=== PATIENT | female | born 1960 | race Two or more races ===

== ENCOUNTER → 2018-10-26 | Outpatient (CLI) | payer OTHER, MEDICAID ==
[~2018-10-26] MED LIST: ATEN25TA PO; GABA600T4 PO; HALC0.25 PO; LISI10TA2 PO; LITH45TASA PO; OMEP20CA3 PO; [UNRECOGNIZED DRUG - CODE] PO
[2018-10-26 09:09] LABS: ALBUMIN 3.7 GM/DL (3.2-5.2); ALT/SGPT 25 U/L (12-78); BILIRUBIN,TOTAL 0.4 MG/DL (0.2-1.0); BLOOD UREA NITROGEN 21 MG/DL (7-18); CALCIUM LEVEL 8.7 MG/DL (8.5-10.1); CARBON DIOXIDE LEVEL 31 MEQ/L (21-32); CHLORIDE LEVEL 106 MEQ/L (98-107); CHOLESTEROL LEVEL 176 MG/DL (<200); CHOLESTEROL RISK RATIO 2.022 (<5); CREATININE FOR GFR 0.78 MG/DL (0.55-1.30); FREE T4 1.02 NG/DL (0.76-1.46); GLOMERULAR FILTRATION RATE > 60.0 (>51); GLUCOSE, FASTING 92 MG/DL (70-100); HDL CHOLESTEROL 87 MG/DL (>40); LDL CHOLESTEROL 81 MG/DL (<100); NON-HDL-C 89 MG/DL; POTASSIUM SERUM 4.6 MEQ/L (3.5-5.1); SODIUM LEVEL 142 MEQ/L (136-145); TOTAL PROTEIN 6.2 GM/DL (6.4-8.2); TRIGLYCERIDES LEVEL 40 MG/DL (<150)
[2018-10-26 09:27] LABS: TOTAL 25(OH) VITAMIN D 40.3 NG/ML (30.0-100.0)
== END ==
LOC: M LAB 07:43
PROVIDERS: ATTEND Nurse Practitioner Family
DX: F32.9 Major depressive disorder, single episode, unspecified (principal)

== ENCOUNTER → 2018-12-16 | Outpatient (CLI) | payer MEDICAID, OTHER ==
--- NOTE | 2018-12-16 10:49 | REP ---
LOW-DOSE LUNG CANCER SCREENING CT STUDY OF THE CHEST WITHOUT CONTRAST: HISTORY: Former smoker. Lung cancer screening. Comparison chest x-rays from February 09, 2014. FINDINGS: There is no evidence of pulmonary mass lesion or significant nodule. There are minimal biapical pleuroparenchymal fibrotic changes. The scan is otherwise unremarkable. IMPRESSION: Lung RADS category 1 negative examination. Repeat screening suggested 1 year. Electronically Signed by Gabriel Tang MD 12/16/2018 07:58 P
== END ==
LOC: M RAD 08:42
PROVIDERS: ATTEND Nurse Practitioner Family
DX: Z12.2 Encounter for screening for malignant neoplasm of respiratory organs (principal); Z87.891 Personal history of nicotine dependence

== ENCOUNTER → 2020-07-26 | Outpatient (CLI) | payer OTHER ==
[~2020-07-26] MED LIST changes: +LISI10TA15 PO; -LISI10TA2 PO; +OMEP1CAP73 PO; -OMEP20CA3 PO
--- NOTE | 2020-07-26 10:29 | REPMRS ---
Patient History The patient states she had a clinical breast exam in 07/26 Family history of breast cancer at age 50 or over in maternal aunt. 3D TOMOSYNTHESIS WAS PERFORMED. The Kiara Caputo lifetime risk for breast cancer is 11.0%. Volpara breast density b. Digital Woman Screen Mammo: July 26, 2020 - Exam #: [id number] Bilateral CC and MLO view(s) were taken. Technologist: Ines Larkin, Technologist Prior study comparison: July 20, 2012, left breast digital mammo diagnostic unilateral, performed at [facility]. July 04, 2012, bilateral digital mammo screening bilat, performed at [facility]. FINDINGS: There are scattered fibroglandular densities. There has been no change in the appearance of the mammogram from the prior studies. There is a mild amount of residual fibroglandular tissue which is fairly symmetric. There is no interval development of dominant mass, architectural distortion, or clustered microcalcification suggestive of malignancy. Assessment: BI-RADS/ACR category 1 mammogram. Negative Mammogram. Recommendation Routine screening mammogram in 1 year (for women over age 40). This mammogram was interpreted with the aid of an FDA-approved computer-aided dectection system. Electronically Signed By: Eliud Quesada MD 07/26/20 [id number]
== END ==
LOC: M WHC 07:51
PROVIDERS: ATTEND Obstetrics & Gynecology
DX: Z12.31 Encounter for screening mammogram for malignant neoplasm of breast (principal); Z80.3 Family history of malignant neoplasm of breast

== ENCOUNTER → 2020-09-23 | Outpatient (CLI) | payer BC, OTHER | LOC: M LABSMTC 11:30 | PROVIDERS: ATTEND Family Medicine | DX: Z20.822 Contact with and (suspected) exposure to COVID-19 (principal) ==

== ENCOUNTER → 2021-08-04 | Outpatient (CLI) | payer BC, OTHER ==
[~2021-08-04] MED LIST changes: -LISI10TA15 PO; +LISI10TA24 PO
== END ==
LOC: M WHC 09:19
PROVIDERS: ATTEND Obstetrics & Gynecology
DX: Z12.31 Encounter for screening mammogram for malignant neoplasm of breast (principal)

== ENCOUNTER → 2022-09-17 | Outpatient (CLI) | payer BC, OTHER | LOC: M WHC 12:52 | PROVIDERS: ATTEND Obstetrics & Gynecology | DX: Z12.31 Encounter for screening mammogram for malignant neoplasm of breast (principal) ==

== ENCOUNTER → 2023-09-22 | Outpatient (CLI) | payer BC | LOC: M WHC 09:26 | PROVIDERS: ATTEND Obstetrics & Gynecology | DX: Z12.31 Encounter for screening mammogram for malignant neoplasm of breast (principal); R92.323 Mammographic fibroglandular density, bilateral breasts ==

== ENCOUNTER → 2024-05-11 | Outpatient (REF) | payer BC, OTHER ==
[~2024-05-11] MED LIST changes: +GABA-1490 PO; -GABA600T4 PO
[2024-05-11 17:19] LABS: BASO % 0.5 % (0.0-1.0); EOS # 0.1 10^3/uL (0.0-0.5); EOS % 1.7 % (0.0-3.0); HEMOGLOBIN 14.4 g/dl (12.0-15.5); LYMPH # 2.2 10^3/uL (1.5-5.0); LYMPH % 29.9 % (24.0-44.0); MEAN CORPUSCULAR HEMOGLOBIN 29.9 pg (27.0-33.0); MEAN CORPUSCULAR HGB CONC 32.7 g/dl (32.0-36.5); MEAN CORPUSCULAR VOLUME 91.5 fl (80.0-96.0); MONO # 0.5 10^3/uL (0.0-0.8); MONO % 6.7 % (2.0-8.0); NEUTROPHILS # 4.5 10^3/uL (1.5-8.5); NEUTROPHILS % 60.8 % (36.0-66.0); PLATELET COUNT, AUTOMATED 288 10^3/uL (150-450); RED BLOOD COUNT 4.81 10^6/uL (4.00-5.40); WHITE BLOOD COUNT 7.4 10^3/uL (4.0-10.0)
[2024-05-11 17:32] LABS: HEMOGLOBIN A1c 5.1 % (4.0-6.0)
[2024-05-11 17:54] LABS: ALBUMIN 4.2 G/DL (3.2-5.2); ALKALINE PHOSPHATASE 66 U/L (46-116); ALT/SGPT 23 U/L (7.0-40); AST/SGOT 16 U/L (<34); BILIRUBIN,TOTAL 0.8 MG/DL (0.3-1.2); BLOOD UREA NITROGEN 23 MG/DL (9-23); CALCIUM LEVEL 9.5 MG/DL (8.3-10.6); CARBON DIOXIDE LEVEL 29 MMOL/L (20-31); CHLORIDE LEVEL 107 MMOL/L (98-107); CHOLESTEROL LEVEL 184 MG/DL (<200); CHOLESTEROL RISK RATIO 2.36 (<5); CREATININE FOR GFR 0.77 MG/DL (0.55-1.30); GLOMERULAR FILTRATION RATE > 60.0 (>45); GLUCOSE, FASTING 77 MG/DL (74-106); HDL CHOLESTEROL 77.7 MG/DL (>40); LDL CHOLESTEROL 93.1 MG/DL (<100); NON-HDL-C 106.3 MG/DL; POTASSIUM SERUM 4.3 MMOL/L (3.5-5.1); SODIUM LEVEL 139 MMOL/L (136-145); TOTAL PROTEIN 6.7 G/DL (5.7-8.2); TRIGLYCERIDES LEVEL 66 MG/DL (<150)
[2024-05-11 17:59] LABS: FOLATE > 24.0 NG/ML (>5.4); FREE T4 1.28 NG/DL (0.89-1.76); THYROID STIMULATING HORMONE 1.258 uIU/ML (0.55-4.78); TOTAL 25(OH) VITAMIN D 70.4 NG/ML (20.0-100.0); VITAMIN B12 LEVEL 660 PG/ML (211-911)
== END ==
LOC: M SFHCADAM 15:00
PROVIDERS: ATTEND Physician Assistant
DX: Z00.00 Encounter for general adult medical examination without abnormal findings (principal); Z12.11 Encounter for screening for malignant neoplasm of colon; F17.211 Nicotine dependence, cigarettes, in remission; Z13.220 Encounter for screening for lipoid disorders; M79.2 Neuralgia and neuritis, unspecified; Z13.1 Encounter for screening for diabetes mellitus

== ENCOUNTER → 2024-06-08 | Outpatient (CLI) | payer BC ==
[~2024-06-08] MED LIST changes: +LITH450T11 PO; -LITH45TASA PO
== END ==
LOC: M RAD 16:31
PROVIDERS: ATTEND Physician Assistant
DX: F17.211 Nicotine dependence, cigarettes, in remission (principal)

== ENCOUNTER 2024-08-16 09:15 | Day surgery (SDC) | payer BC ==
[~2024-08-16] VITALS: Ht 165.1 cm; Wt 58.1 kg
[~2024-08-16 09:15] MED LIST changes: -HALC0.25 PO; +PROBCAP14 PO; +THERTAB52 PO; +[UNRECOGNIZED DRUG - CODE] PO; +nutrafol PO
[2024-08-16] MEDS ORDERED: propofoL 200 MG/20 ML VIAL As Ordered ONE (10:45)
[2024-08-16] MEDS ORDERED: LIDOCAINE 2% 100MG/5ML SDV (FOR ANES.) As Ordered ONE (10:45)
[2024-08-16] MEDS ORDERED: PHENYLephrine 500MCG 5ML (100MCG/ML) SYRINGE As Ordered ONE (11:02)
[2024-08-16 11:10] VITALS: TEMP 97.4
[2024-08-16 11:30] VITALS: BP 137/67; O2SAT 100
== END 2024-08-16 11:32 | disposition home or self-care (01) ==
LOC: M OPP 09:15
PROVIDERS: ATTEND Surgery
DX: Z12.11 Encounter for screening for malignant neoplasm of colon (principal); Z12.12 Encounter for screening for malignant neoplasm of rectum; K63.5 Polyp of colon; K57.30 Diverticulosis of large intestine without perforation or abscess without bleeding; K64.4 Residual hemorrhoidal skin tags; Z86.0100 Personal history of colon polyps, unspecified; Z87.891 Personal history of nicotine dependence
CPT/HCPCS: 45385; 88305; J2371

== ENCOUNTER → 2024-09-28 | Outpatient (CLI) | payer BC | LOC: M WHC 12:49 | PROVIDERS: ATTEND Obstetrics & Gynecology | DX: Z12.31 Encounter for screening mammogram for malignant neoplasm of breast (principal); M81.0 Age-related osteoporosis without current pathological fracture ==

== ENCOUNTER → 2025-05-17 | Outpatient (REF) | payer BC ==
[~2025-05-17] MED LIST changes: -LITH450T11 PO; +LITH450T17 PO
[2025-05-17 14:03] LABS: CALCIUM LEVEL 9.2 MG/DL (8.3-10.6); CARBON DIOXIDE LEVEL 29.0 MMOL/L (20-31); CHLORIDE LEVEL 104.0 MMOL/L (98-107); CREATININE FOR GFR 0.83 MG/DL (0.55-1.30); GLOMERULAR FILTRATION RATE 79.7 (>45); POTASSIUM SERUM 4.7 MMOL/L (3.5-5.1); SODIUM LEVEL 142.0 MMOL/L (136-145)
[2025-05-17 14:05] LABS: FREE T4 1.25 NG/DL (0.89-1.76)
== END ==
LOC: M SFHCADAM 09:30
PROVIDERS: ATTEND Physician Assistant
DX: M81.0 Age-related osteoporosis without current pathological fracture (principal); F17.211 Nicotine dependence, cigarettes, in remission; I10 Essential (primary) hypertension

== ENCOUNTER → 2025-08-08 | Outpatient (CLI) | payer BC ==
[~2025-08-08] MED LIST changes: +OMEP40CA4 PO; +SUCR1TA PO; +SULF-7 PO
== END ==
LOC: M RAD 09:19
PROVIDERS: ATTEND Physician Assistant
DX: Z87.891 Personal history of nicotine dependence (principal)

== ENCOUNTER 2025-08-09 18:40 | Emergency (ER) | payer BC ==
[~2025-08-09] VITALS: Ht 165.1 cm; Wt 62.1 kg
[~2025-08-09 18:40] MED LIST changes: -OMEP40CA4 PO; -SUCR1TA PO; -SULF-7 PO
[2025-08-09 18:41] VITALS: BP 155/86; TEMP 96.4; O2SAT 100
[2025-08-09 19:46] LABS: BASO # 0.1 10^3/uL (0.0-0.2); BASO % 0.6 % (0.0-1.0); EOS # 0.2 10^3/uL (0.0-0.5); EOS % 2.1 % (0.0-3.0); LYMPH # 2.9 10^3/uL (1.5-5.0); LYMPH % 28.0 % (24.0-44.0); MONO # 0.8 10^3/uL (0.0-0.8); MONO % 7.7 % (2.0-8.0); NEUTROPHILS # 6.3 10^3/uL (1.5-8.5); NEUTROPHILS % 61.3 % (36.0-66.0); PLATELET COUNT, AUTOMATED 272 10^3/uL (150-450)
[2025-08-09 20:09] LABS: ALT/SGPT 31.0 U/L (7.0-40); AST/SGOT 28.0 U/L (<34)
[2025-08-09] MEDS ORDERED: ISOVUE-370 76% 100 ML VIAL As Ordered ONE (20:10)
[2025-08-09 22:09] LABS: KETONE, URINE AUTO RFX NEGATIVE (NEGATIVE); RBC, URINE AUTO RFX 5 /HPF (0-3); SQUAM EPITHELIAL CELL UR AURFX 0 /HPF (0-6)
[2025-08-09 22:10] LABS: LEUKOCYTE ESTERASE UR AUTO RFX 2+ (NEGATIVE); NITRITE, URINE AUTO RFX POSITIVE (NEGATIVE); WBC, URINE AUTO RFX 11 /HPF (0-3)
[2025-08-09] MEDS ORDERED: SULF-7 PO (22:22)
[2025-08-09] MEDS ORDERED: OMEP40CA4 PO (22:22)
[2025-08-09] MEDS ORDERED: SUCR1TA PO (22:22)
== END 2025-08-09 22:32 | disposition home or self-care (01) ==
LOC: M ED 18:40
DX: N39.0 Urinary tract infection, site not specified (principal); K52.9 Noninfective gastroenteritis and colitis, unspecified; Z79.899 Other long term (current) drug therapy
CPT/HCPCS: 36415; 74177; 80047; 80076; 81001; 83690; 85025; 87088; 87186; 99284; Q9967

== ENCOUNTER → 2025-08-28 | Outpatient (REF) | payer BC ==
[~2025-08-28] MED LIST changes: +OMEP40CA4 PO; +SUCR1TA PO; +SULF-7 PO
[2025-08-28 13:47] LABS: APPEARANCE, URINE CLEAR (CLEAR); BACTERIA, URINE AUTO NEGATIVE (NEGATIVE); BILIRUBIN, URINE AUTO NEGATIVE (NEGATIVE); BLOOD, URINE BLOOD NEGATIVE (NEGATIVE); GLUCOSE, URINE (UA) AUTO NEGATIVE (NEGATIVE); KETONE, URINE AUTO NEGATIVE (NEGATIVE); LEUKOCYTE ESTERASE, URINE AUTO TRACE (NEGATIVE); NITRITE, URINE AUTO NEGATIVE (NEGATIVE); PROTEIN, URINE AUTO NEGATIVE (NEGATIVE); RBC, URINE AUTO 0 /HPF (0-3); SPECIFIC GRAVITY URINE AUTO 1.009 (1.002-1.035); SQUAMOUS EPITHELIAL CELL UR AU 0 /HPF (0-6); UROBILINOGEN, URINE AUTO 0.2 mg/dL (0.0-2.0); WBC, URINE AUTO 2 /HPF (0-3)
[2025-08-28 13:49] LABS: ALT/SGPT 28.0 U/L (7.0-40); AST/SGOT 26.0 U/L (<34); CALCIUM LEVEL 9.4 MG/DL (8.3-10.6); CARBON DIOXIDE LEVEL 34.0 MMOL/L (20-31); CHLORIDE LEVEL 101.0 MMOL/L (98-107); CREATININE FOR GFR 0.76 MG/DL (0.55-1.30); GLOMERULAR FILTRATION RATE 88.5 (>45); POTASSIUM SERUM 4.7 MMOL/L (3.5-5.1); SODIUM LEVEL 141.0 MMOL/L (136-145)
== END ==
LOC: M SFHCADAM 08:52
PROVIDERS: ATTEND Physician Assistant
DX: I10 Essential (primary) hypertension (principal); K52.9 Noninfective gastroenteritis and colitis, unspecified; N30.00 Acute cystitis without hematuria

== ENCOUNTER → 2025-08-29 | Outpatient (REF) | payer BC | LOC: M SFHCADAM 10:15 | PROVIDERS: ATTEND Physician Assistant | DX: K52.9 Noninfective gastroenteritis and colitis, unspecified (principal); N30.00 Acute cystitis without hematuria ==